=== PATIENT | female | born 1985 | race Caucasian/White ===

== ENCOUNTER 2022-11-18 00:12 | Emergency (ER) | payer SELFPAY ==
[~2022-11-18] VITALS: Ht 162.6 cm; Wt 73.0 kg
[2022-11-18 00:15] VITALS: BP 162/71; PULSE 118; RESP 20; TEMP 98.9; O2SAT 100
[2022-11-18] MEDS ORDERED: ONDANSETRON HCL 4MG/2ML INJ IV ONE (00:45)
[2022-11-18] MEDS ORDERED: SODIUM CHLORIDE 0.9% 1,000 ML IV ONE (00:45)
[2022-11-18] MEDS ORDERED: MAGNESIUM/ALUMINUM HYDROXIDE/SIMETHICONE 30ML UDC PO ONE (00:45)
[2022-11-18] MEDS ORDERED: FAMOTIDINE 20MG/2ML VIAL IV ONE (00:45)
[2022-11-18 00:53] LABS: BASOPHILS % 0.1 % (0.0-2.0); DIFFERENTIAL COMMENT 0; EOSINOPHILS % 0.1 % (0.0-5.0); HEMATOCRIT. 39.3 % (36.0-48.0); HEMOGLOBIN. 12.8 g/dL (12.0-16.0); LYMPHOCYTES % 22.4 % (20.0-50.0); MEAN CORPUSCULAR HEMOGLOBIN 28.1 pg (28.0-32.0); MEAN CORPUSCULAR HGB CONC 32.6 g/dL (31.0-37.0); MEAN CORPUSCULAR VOLUME 86.1 fL (81.0-99.0); MEAN PLATELET VOLUME 10.4 fl (7.4-10.4); MONOCYTES % 2.3 % (2.0-8.0); NEUTROPHILS % 75.1 % (40.0-76.0); PLATELET 227 x1000/uL (130-400); RED BLOOD CELL COUNT 4.57 mill/uL (4.2-5.4); RED CELL DISTRIBUTION WIDTH 14.1 % (11.6-14.6); WHITE BLOOD COUNT 14.6 x1000/uL (4.5-11.0)
[2022-11-18 01:06] LABS: CHLORIDE 110 mEq/L (98-107); INDEX HEMOLYSI 1 (1-3); INDEX ICTERIC 1 (1-4); INDEX LIPEMIC 1 (1-3); POTASSIUM 3.3 mEq/L (3.5-5.1); SODIUM 137 mEq/L (136-145)
[2022-11-18 01:15] LABS: ALANINE AMINOTRANSFERASE 30 IU/L (13-61); ALBUMIN 3.2 g/dL (3.4-5.0); ASPARTATE AMINOTRANSFERASE 22 IU/L (15-37); BILIRUBIN TOTAL 0.2 mg/dL (0.1-1.0); CALCIUM 8.4 mg/dL (8.5-10.1); CARBON DIOXIDE 19 mEq/L (21-32); CREATININE 0.8 mg/dL (0.6-1.3); GLUCOSE 112 mg/dL (70-105); PROTEIN TOTAL 6.9 g/dL (6.0-8.3); UREA NITROGEN BLOOD 11 mg/dL (7-21)
[2022-11-18 01:18] LABS: HCG SCREEN NEGATIVE
[2022-11-18] MEDS ORDERED: EPIN0.3P3 IM (03:23)
[2022-11-18] MEDS ORDERED: FAMO20TA8 MT (03:23)
[2022-11-18] MEDS ORDERED: P20 MT (03:23)
[2022-11-18] MEDS ORDERED: DIPH25TA62 MT (03:23)
[2022-11-18] MEDS ORDERED: ACETAMINOPHEN 325MG TABLET PO ONE (03:30)
== END 2022-11-18 04:00 | disposition home or self-care (01) ==
LOC: ER 00:12
DX: T78.2XXA Anaphylactic shock, unspecified, initial encounter (principal); D72.829 Elevated white blood cell count, unspecified; R22.9 Localized swelling, mass and lump, unspecified; Z91.013 Allergy to seafood
CPT/HCPCS: 80053; 84703; 83690; 85025; 36415; 96361; 96374; 96375; 99284; J3490; J2405; J7030; Z7610 ×2

== ENCOUNTER 2023-12-24 15:33 | Emergency (ER) | payer MEDICAID ==
[~2023-12-24] VITALS: Ht 165.1 cm; Wt 57.0 kg
[~2023-12-24 15:33] MED LIST: DIPH25TA62 MT; EPIN0.3P3 IM; FAMO20TA8 MT; P20 MT
[2023-12-24 15:46] VITALS: BP 124/81; PULSE 97; RESP 16; TEMP 97.8; O2SAT 99
== END 2023-12-24 18:00 | disposition left against medical advice (07) ==
LOC: ER 15:33
DX: F41.9 Anxiety disorder, unspecified (principal); Z91.013 Allergy to seafood; Z79.899 Other long term (current) drug therapy
CPT/HCPCS: 99283